=== PATIENT | female | born 1955 | race Caucasian/White ===

== ENCOUNTER 2021-01-07 08:06 | Outpatient (CLI) | payer MEDICARE, SELFPAY ==
--- NOTE | ~2021-01-07 | DEXA_ITS ---
Bone Density Report Name: Dale Blanc Age: 65 Sex: Female Ethnicity: White Date of : 1955 Indication: postmenopausal; height loss; Referring Provider: SAIRA CARRASQUILLO Study: Bone densitometry was performed. Exam Date: January 07, 2021 Accession number: [id number] Bone Density: Region BMD T-score Z-score Classification AP Spine (L1-L4) 0.581 -4.2 -2.3 Osteoporosis Femoral Neck (Left) 0.507 -3.1 -1.5 Osteoporosis Total Hip (Left) 0.718 -1.8 -0.5 Osteopenia Total Hip Bilateral Avg 0.702 -1.9 -0.7 Osteopenia Femoral Neck (Right) 0.556 -2.6 -1.0 Osteoporosis Total Hip (Right) 0.684 -2.1 -0.8 Osteopenia World Health Organization criteria for BMD impression classify patients as: Normal (T-score at or above -1.0), Osteopenia (T-score between -1.0 and -2.5), or Osteoporosis (T-score at or below -2.5). 10-year Fracture Risk: FRAX not reported because: Some T-score for Spine Total or Hip Total or Femoral Neck at or below -2.5 Clinical Information Provided by Patient: Has used the following medications: Vitamin D, Calcium Patient maximum height was 64.5 Menopause Age: 53 Onset of menses at age 12 Number of children 1 Impression: The patient has osteoporosis, based on the Total Spine T-score. Discussion: HIGH RISK OF FRACTURE. BONE DENSITY IS UNDESIRABLY LOW AT ONE OR MORE SKELETAL SITES, CONSISTENT WITH OSTEOPOROSIS. ALSO, BONE DENSITY IS LOWER THAN EXPECTED FOR AGE AND SEX AT ONE OR MORE SKELETAL SITES; RECOMMEND A DILIGENT SEARCH FOR SECONDARY CAUSES OF BONE LOSS. This patient's lowest T-score meets the World Health Organization's (WHO) criteria for osteoporosis at one or more sites (T-score -2.5 or below). In untreated patients, the risk of osteoporotic fracture increases approximately two-fold for each 1.0 SD decrease in T-score. Low bone density is not the only risk factor for fracture; also consider factors such as patient's age, frailty or poor health, risk of falling, risk of injury, previous osteoporotic fracture, family history of osteoporosis, cigarette smoking, low body weight, etc. Not everyone with low bone mineral density has osteoporosis; osteomalacia and other metabolic bone disorders should also be considered. Patients who have osteoporosis should be evaluated for specific diseases and conditions (secondary causes) that may cause or contribute to bone loss. The [place] Association of Clinical Endocrinologists (AACE) and National Osteoporosis Foundation (NOF) recommend pharmacologic intervention for all postmenopausal women whose T-score is in this range. Also, this patient's bone mineral density is below the range considered normal for healthy age-, sex-, and race-matched controls at least one site (Z-score -2.0 or below). This warrants careful evaluation for diseases and conditions that may
--- NOTE | ~2021-01-07 | MM_ITS ---
EXAMINATION: MM screening carrie BI w saulo HISTORY: Screening mammogram TECHNIQUE: Craniocaudal and mediolateral oblique 3-D tomosynthesis images were obtained and synthetic 2-D images were generated. CAD analysis was submitted and interpreted. COMPARISON: No prior mammogram is available for comparison at this institution. BREAST PARENCHYMAL COMPOSITION: There are scattered areas of fibroglandular density. FINDINGS: RIGHT BREAST: There is focal asymmetry in the posterior third of the upper outer quadrant of the [address]. LEFT BREAST: There is no evidence of suspicious mass, calcification, or architectural distortion to s uggest malignancy. IMPRESSION: 1. Right breast focal asymmetry. 2. Additional mammographic views and possible breast ultrasound are recommended. BI-RADS Category 0: Incomplete: Needs additional imaging evaluation. Reviewed, dictated and finalized at location A. IMPRESSION: 1. Right breast focal asymmetry. 2. Additional mammographic views and possible breast ultrasound are recommended . BI-RADS Category 0: Incomplete: Needs additional imaging evaluation.
== END 2021-01-07 08:07 | disposition home or self-care (01) ==
PROVIDERS: PCP Family Medicine; Visit Provider Family Medicine
DX: Z12.31 Encounter for screening mammogram for malignant neoplasm of breast (principal); Z78.0 Asymptomatic menopausal state; M81.0 Age-related osteoporosis without current pathological fracture; M85.89 Other specified disorders of bone density and structure, multiple sites; R92.8 Other abnormal and inconclusive findings on diagnostic imaging of breast
CPT/HCPCS: 77063; 77067; 77080

== ENCOUNTER 2022-03-31 09:38 | Outpatient (CLI) | payer MEDICARE, SELFPAY ==
--- NOTE | ~2022-03-31 | MM_ITS ---
EXAMINATION: MM screening carrie BI w saulo HISTORY: Screening TECHNIQUE: Craniocaudal and mediolateral oblique 3-D tomosynthesis images were obtained and synthetic 2-D images were generated. CAD analysis was submitted and interpreted. COMPARISON: Comparison to multiple prior studies sequentially, with oldest reviewed study dated 02/17. BREAST PARENCHYMAL COMPOSITION: Breast composed of scattered areas of fibroglandular density FINDINGS: There is no evidence of suspicious mass, calcification, or architectural distortion to sugg est malignancy in either breast. There has been no suspicious interval change. IMPRESSION: 1. No mammographic evidence of malignancy. 2. Recommend routine screening mammography in one year. BI-RADS Category 1: Negative Reviewed, dictated and finalized at location B. T TOUR GUIDE
== END 2022-03-31 09:39 | disposition home or self-care (01) ==
PROVIDERS: PCP Family Medicine; Visit Provider Physician Assistant
DX: Z12.31 Encounter for screening mammogram for malignant neoplasm of breast (principal)
CPT/HCPCS: 77063; 77067

== ENCOUNTER 2023-06-15 13:18 | Outpatient (CLI) | payer MEDICARE, SELFPAY ==
--- NOTE | 2023-06-15 13:25 | ECHO_ITS ---
Patient Info Name: Dale Blanc Age: 68 years : 1955 Gender: Female Ht: 64 in Wt: 137 lbs BSA: 1.68 m2 HR: 77 bpm BP: 131 / 78 mmHg Heart Rhythm: Sinus Rhythm Technical Quality: Good Exam Date: 06/15/2023 1:46 PM Exam Location: Echo Lab Patient Status: Outpatient Admit Date: 06/15/2023 Staff Ordering Physician: Jessica Reynoso MD C Engineer: Kvng Jefferson RDCS Attending Provider: Jessica Reynoso MD Referring Physician: Edgardo FREITAS; Exam Type: CA echo doppler color flow Study Info Indications - murmur Complete two-dimensional, color flow and Doppler transthoracic echocardiogram is performed. Summary 1. Complete two-dimensional, color flow and Doppler transthoracic echocardiogram is performed. 2. Left ventricular chamber dimension is normal. 3. Left ventricular systolic function is hyperdynamic, estimated at >70%. 4. Ventricular septum is sigmoid shaped. No LVOT obstruction. 5. The left ventricular diastolic function is grade I diastolic dysfunction. 6. E/e' 17 is elevated. 7. Left atrial chamber dimension is mildly enlarged. 8. There is mild tricuspid valve regurgitation. 9. No pulmonary hypertension, estimated pulmonary arterial systolic pressure is 30 mmHg. Left Ventricle E/e' 17 is elevated. Ventricular septum is sigmoid shaped. No LVOT obstruction. Left ventricular chamber dimension is normal. Left ventricular systolic function is hyperdynamic, estimated at >70%. The left ventricular diastolic function is grade I diastolic dysfunction. Right Ventricle Right ventricular systolic function is normal and with normal TAPSE 2.7 cm. Right ventricular chamber dimension is normal. Left Atria Left atrial chamber dimension is mildly enlarged. Right Atria Right atrial chamber dimension is normal. Aortic Valve The aortic valve is trileaflet. There is no aortic valve stenosis. There is no aortic valve regurgitation. Pulmonic Valve There is no pulmonic regurgitation. Mitral Valve There is no mitral valve stenosis. There is no mitral valve regurgitation. Tricuspid Valve There is mild tricuspid valve regurgitation. No pulmonary hypertension, estimated pulmonary arterial systolic pressure is 30 mmHg. Pericardium/Pleural There is no pericardial effusion. Inferior Vena Cava Normal inferior vena cava with >50% collapse upon inspiration consistent with normal right atrial pressure, 5 mmHg. Aorta The aortic root size at the sinus of Valsalva is normal. Left Ventricular Outflow Tract Name Value Normal LVOT 2D LVOT Diameter 2.0 cm LVOT Doppler LVOT Peak Gradient 8 mmHg LVOT Mean Gradient 5 mmHg LVOT VTI 36 cm LVOT VTI/AV VTI Ratio 1.1 LVOT Stroke Volume 112 ml LVOT CO 6.9 l/min LVOT CI 4.1 l/min/m2 Pulmonic Valve Name Value Normal RVOT Doppler -------
== END 2023-06-15 13:19 | disposition home or self-care (01) ==
PROVIDERS: PCP Family Medicine; Visit Provider Family Medicine
DX: R93.1 Abnormal findings on diagnostic imaging of heart and coronary circulation (principal); R01.1 Cardiac murmur, unspecified; I07.1 Rheumatic tricuspid insufficiency; Z51.81 Encounter for therapeutic drug level monitoring
CPT/HCPCS: 93306

== ENCOUNTER 2024-06-02 09:30 | Outpatient (CLI) | payer MEDICARE, SELFPAY ==
--- NOTE | ~2024-06-02 | MM_ITS ---
EXAMINATION: MM screening carrie BI w saulo HISTORY: Screening TECHNIQUE: Craniocaudal and mediolateral oblique 3-D tomosynthesis images were obtained and synthetic 2-D images were generated. CAD analysis was submitted and interpreted. COMPARISON: Comparison to multiple prior studies sequentially, with oldest reviewed study dated 02/17. BREAST PARENCHYMAL COMPOSITION: Not dense: There are scattered areas of fibroglandular density. FINDINGS: There is no evidence of suspicious mass, calcification, or architectural distortion to sugg est malignancy in either breast. There has been no suspicious interval change. IMPRESSION: 1. No mammographic evidence of malignancy. 2. Recommend routine screening mammography in one year. BI-RADS Category 1: Negative Reviewed, dictated and finalized at location B. ECT PRODUCTION ENGINEER
--- OUTSIDE RECORDS SUMMARY | 2024-06-02 09:36 | XMS_ITS | Encounter Summary ---
Author Organization [facility] Address 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
--- OUTSIDE RECORDS SUMMARY | 2024-06-02 09:36 | XMS_ITS | Encounter Summary ---
Author Organization [employer] [facility] Address 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
--- OUTSIDE RECORDS SUMMARY | 2024-06-02 09:36 | XMS_ITS | Clinical Summary ---
Author Organization [facility] Address [address] [place] [address] Care Team Providers Care Press Catcher Name Role Phone Unavailable Primary Care Provider Unavailabl e Source Comments [facility] [employer],non-owned Affiliates and Associated Physician Practices is amultiple site organization consisting of ambulatory clinics and hospital sitesin [place], [place], [place] and [place]. This disclosure is being madepursuant to the Care Everywhere program and may not contain all information available regarding this patient. Last updated 18.[facility] Allergies No known active allergies Immunizations Name Administration Dates Next Due INFLUENZA VACCINE, HIGH-DOSE , QUADR. (FLUZONE HIGH-DOSE QUADRIVALENT; 65Y+), 0.7 ML (HD-IIV4) 01/02/2020 INFLUENZA VACCINE, QUADR. (F LUZONE; FLULAVAL; FLUARIX; AFLURIA QUADRIVALENT; 6MO+), 0.5 ML (IIV4) 01/17/2019 TD (ADULT), 5 LF TETANUS TOXOID, ADSORBED, PF Social History Tobacco Use Types Packs/Day Years Used Date Smoking Tobacco: Never Assessed Sex and Gender Information Value Date Recorded Sex Assigned at Not on file Gender Identity Not on file Sexual Orientation Not on file Plan of Treatment Health Maintenance Due Date Last Done Comments BONE DENSITY TESTING 1955 COLOGUARD (AGES 45-75) - COLON CA SCREENING 1955 COLON MONITORING 1955 COLONOSCOPY - COLON CA SCREENING 1955 CT COLONOGRAPHY - COLON CA SCREENING 1955 Colorectal Cancer Screening 1955 FIT - COLON CA SCREENING 1955 FLEX SIG - COLON CA SCREENING 1955 LIPID TESTING 1955 MAMMOGRAM 1955 HEPATITIS C SCREENING 01/24/1972 PNEUMOCOCCAL VACCINE 50+ (1 of 1 - PCV) 01/29/2004 ZOSTER VACCINE (1 of 2) 01/29/2004 COVID-19 VACCINE (3 - season) 2023 06/07/2020, 05/15/2020 INFLUENZA VACCINE (#1) 2023 0, 01/17/2019, 01/13/2018, Additional history exists DEPRESSION SCREENING 04/19/2024 MEDICARE AWV CALENDAR YEAR 2024 DTAP/TDAP/TD VACCINES (2 - Td or Tdap) 01/17/2029 01/17/2019 Respiratory Syncytial Virus (RSV) Vaccine Pt: or over 60 yrs (1 - 1-dose 75+ series) 2029 HEPATITIS B VACCINE Aged Out No longe r eligible based on patient's age to complete this topic HIB VACCINE Aged Out No longer eligi ble based on patient's age to complete this topic HPV VACCINE Aged Out No longer eligi ble based on patient's age to complete this topic MENINGOCOCCAL (Group B) VACCINE Aged Out No longer eligible based on patient's age to complete this topic MENINGOCOCCAL VACCINE Aged Out No galileo sneha eligible based on patient's age to complete this topic
--- OUTSIDE RECORDS SUMMARY | 2024-06-02 09:36 | XMS_ITS | Encounter Summary ---
Author Organization [facility] Address [address] [place] [address] Care Team Providers Care Cider Press Operator Name Role Phone Shi Ansari MD Primary Care Provider + Encounter Details Date Type Department Care Team (Latest Contact Info) Description 09/19/2003 Inpatient Historical HIS [facility] Karan López MD [address] [place] [address] [address] [place] [phone] DIFFUS CYSTIC MASTOPATHY (Primary Dx) Social History Tobacco Use Types Packs/Day Years Used Date Smoking Tobacco: Never Assessed Comments Unknown Sex and Gender Information Value Date Recorded Sex Assigned at Not on file 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
--- OUTSIDE RECORDS SUMMARY | 2024-06-02 09:36 | XMS_ITS | Encounter Summary ---
Author Organization [facility] Address [address] [place] [address] Care Team Providers Care Buggy Operator Name Role Phone Shi Ansari MD Primary Care Provider + Encounter Details Date Type Department Care Team (Latest Contact Info) Description 12/07/2001 Outpatient Historical HIS [facility] Karan López MD [address] [place] [address] [address] [place] [phone] MAMMOGRAPHIC MICROCALCIFICATION (Primary Dx) Social History Tobacco Use Types Packs/Day Years Used Date Smoking Tobacco: Never Assessed Comments Unknown Sex and Gender Information Value Date Recorded Sex Assigned at Not on file Legal Sex Female 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
--- OUTSIDE RECORDS SUMMARY | 2024-06-02 09:36 | XMS_ITS | Patient Health Summary ---
Author Organization [facility] Address [address] [place] [place] [address] Care Team Providers Care Financial Services Sales Representative Name Role Phone Unavailable Primary Care Provider Unavailabl e Note from [facility],non-owned Affiliates and Associated Physician Practices is amultiple site organization consisting of ambulatory clinics and hospital sitesin [place], [place], [place] and [place]. This disclosure is being madepursuant to the Care Everywhere program and may not contain all information available regarding this patient. Last updated 18.[facility] Allergies No known active allergies Immunizations * INFLUENZA VACCINE, HIGH-DOSE, QUADR. (FLUZONE HIGH-DOSE QUADRIVALENT; 65Y+), 0.7 ML (HD-IIV4)(Given 01/02/2020) * INFLUENZA VACCINE, QUADR. (FLUZONE; FLULAVAL; FLUARIX; AFLURIA QUADRIVALENT; 6MO+), 0.5 ML (IIV4)(Given 01/17/2019) * TD (ADULT), 5 LF TETANUS TOXOID, ADSORBED, PF(Given 01/17/2019) Social History Tobacco Use Types Packs/Day Years Used Date Smoking Tobacco: Never Assessed Sex and Gender Information Value Date Recorded Sex Assigned at Not on file Gender Identity Not on file Sexual Orientation Not on file
--- OUTSIDE RECORDS SUMMARY | 2024-06-02 09:36 | XMS_ITS | Encounter Summary ---
Author Organization [employer] [facility] Address 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
--- OUTSIDE RECORDS SUMMARY | 2024-06-02 09:36 | XMS_ITS | Encounter Summary ---
Author Organization [facility] Address 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
--- OUTSIDE RECORDS SUMMARY | 2024-06-02 09:36 | XMS_ITS | Clinical Summary ---
Author Organization [facility] Address [address] [place] [address] Phone Care Team Providers Care Rotary Kiln Operator Name Role Phone Shi Ansari MD Primary Care Provider + Social History Tobacco Use Types Packs/Day Years Used Date Smoking Tobacco: Never Assessed Comments Unknown Sex and Gender Information Value Date Recorded Sex Assigned at Not on file Legal Sex Female 4:28 AM ORDER PACKER OR PACKAGER Gender Identity Not on file Sexual Orientation Not on file Plan of Treatment Health Maintenance Due Date Last Done Comments DTAP/TDAP/TD VACCINES (1 - Tdap) 1973 COLORECTAL SCREENING 1999 Colorectal Cancer Screening 1999 FIT-DNA Q 3 years 1999 FIT/FOBT Q 1 year 1999 Flex Sig/CT Colonography Q 5 years 1999 PNEUMOCOCCAL VACCINE 65+ YEA RS (1 of 1 - PCV) 01/29/2004 ZOSTER VACCINE (1 of 2) 01/29/2004 BREAST CANCER SCREENING 03/05/2016 03/05/2015, 02/21 OSTEOPOROSIS SCREENING 2019 INFLUENZA VACCINE (#1) 2023 RSV VACCINE (60+ or ) (1 - 1-dose 75+ series) 2029 Procedures Procedure Name Priority Date/Time Associated Diagnosis Comments MAMMO SCREEN BILAT W OR WO CAD Routine 03/05/2015 4:44 PM ORDER PACKER OR PACKAGER Visit for screening mammogram from Last 3 Months or Most Recently Relevant to Health Maintenance Results * MAMMO DIGITAL SCREEN BILAT (03/05/2015 4:44 PM ORDER PACKER OR PACKAGER) Anatomical Region Laterality Modality Breast Bilateral Mammography Narrative 03/06/2015 7:36 AM ORDER PACKER OR PACKAGER Bilateral digital screening mammogram with computer assisted diagnosis History: Annual screening exam. Findings: A bilateral screening mammogram was performed. Comparison is made to : 02/21/2010 There are scattered fibroglandular densities. No new masses, suspicious calcifications, or areas of asymmetry or distortion are identified. CAD was utilized. Impression: Negative screening mammogram. Recommendation: Routine annual follow-up Overall Assessment: Birads Category 1: Negative us Deonna Mix MD MAMMO ORDERABLES Final Resul t from Last 3 Months or Most Recently Relevant to Health Maintenance Care Teams Rotary Kiln Operator Relationship Specialty Start Date End Date Shi Ansari MD [address] [address] [place] [phone] PCP - General Family Practice 03/05/15
--- OUTSIDE RECORDS SUMMARY | 2024-06-02 09:36 | XMS_ITS | Encounter Summary ---
Author Organization [facility] Address 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
--- OUTSIDE RECORDS SUMMARY | 2024-06-02 09:36 | XMS_ITS | Referral Summary ---
Author Organization [facility] Address [address] [place] [address] Care Team Providers Care Soaker Helper Name Role Phone Unavailable Primary Care Provider Unavailabl e Source Comments [facility] [employer],non-owned Affiliates and Associated Physician Practices is amultiple site organization consisting of ambulatory clinics and hospital sitesin [place], [place], [place] and [place]. This disclosure is being madepursuant to the Care Everywhere program and may not contain all information available regarding this patient. Last updated 18.[facility] [employer] Allergies No known active allergies Immunizations Name [...] Orientation Not on file Plan of Treatment Not on file
== END 2024-06-02 09:31 | disposition home or self-care (01) ==
LOC: ANHIMG 09:33
PROVIDERS: PCP Family Medicine; Visit Provider Family Medicine
DX: Z12.31 Encounter for screening mammogram for malignant neoplasm of breast (principal)
CPT/HCPCS: 77063; 77067

== ENCOUNTER 2024-08-22 07:52 | Outpatient (CLI) | payer MEDICARE, SELFPAY ==
--- NOTE | ~2024-08-22 | DEXA_ITS ---
Bone Density Report Name: JAIRO MOHR Age: 69 Sex: Female Ethnicity: White Date of : 1955 Indication: postmenopausal osteoporosis; height loss; Referring Provider: PRABHAKAR YEUNG Study: Bone densitometry was performed. Exam Date: August 22, 2024 Accession number: [id number] Bone Density: Region BMD T-score Z-score Classification AP Spine(L1, L2, L3) 0.553 -4.2 -2.1 Osteoporosis Femoral Neck (Left) 0.556 -2.6 -0.8 Osteoporosis Total Hip (Left) 0.679 -2.2 -0.6 Osteopenia Femoral Neck (Right) 0.562 -2.6 -0.8 Osteoporosis Total Hip (Right) 0.707 -1.9 -0.4 Osteopenia Total Hip Mean 0.693 -2.1 -0.5 Osteopenia World Health Organization criteria for BMD impression classify patients as: Normal (T-score at or above -1.0), Osteopenia (T-score between -1.0 and -2.5), or Osteoporosis (T-score at or below -2.5). 10-year Fracture Risk: FRAX not reported because: Some T-score for Spine Total or Hip Total or Femoral Neck at or below -2.5 Previous Exams: Region Exam Age BMD T-score BMD Change BMD Change Date g/cm2 vs Baseline vs Previous AP Spine (L1-L3) 08/22/2024 69 0.553 -4.2 0.001 (0.2%) 0.001 (0.2%) 01/07/2021 65 0.552 -4.2 Total Hip(Left) 08/22/2024 69 0.679 -2.2 -0.038 (-5.3%) -0.038 (-5.3%) 01/07/2021 65 0.718 -1.8 Total Hip(Right) 08/22/2024 69 0.707 -1.9 0.023 (3.4%) 0.023 (3.4%) 01/07/2021 65 0.684 -2.1 *Denotes significance at 95% confidence level, LSC for AP Spine = 0.022 g/cm2, LSC for Total Hip = 0.027 g/cm2 Clinical Information Provided by Patient: Has used the following medications: Vitamin D, Calcium Patient maximum height was 64 Menopause Age: 53 No regular weight bearing exercise Drinks caffeinated beverages Onset of menses at age 11 Number of children 1 Impression: The patient has osteoporosis, based on the Total Spine T-score. The BMD for the Total Hip(Left) decreased, changing by -5.3% since the last DXA exam. Discussion: HIGH RISK OF FRACTURE. BONE DENSITY IS UNDESIRABLY LOW AT ONE OR MORE SKELETAL SITES, CONSISTENT WITH OSTEOPOROSIS. ALSO, BONE DENSITY IS LOWER THAN EXPECTED FOR AGE AND SEX AT ONE OR MORE SKELETAL SITES; RECOMMEND A DILIGENT SEARCH FOR SECONDARY CAUSES OF BONE LOSS. This patient's lowest T-score meets the World Health Organization's (WHO) criteria for osteoporosis at one or more sites (T-score -2.5 or below). In untreated patients, the risk of osteoporotic fracture increases approximately two-fold for each 1.0 SD decrease in T-score. Low bone density is not the only risk factor for fracture; also consider factors such as patient's age, frailty or poor health, risk of falling, risk of injury, previous osteoporotic fracture, family history of osteoporosis, cigarette smoking, low body weight, etc. Not everyone with low bone mineral density has osteoporosis; osteomalacia and other metabolic bone disorders should also be considered. Patients who have osteoporosis should be evaluated for specific diseases and conditions (secondary causes) that may cause or contribute to bone loss. The [place] Association of Clinical Endocrinologists (AACE) and National Osteoporosis Foundation (NOF) recommend pharmacologic intervention for all postmenopausal women whose T-score is in this range. Also, this patient's bone mineral density is below the range considered normal for healthy age-, sex-, and race-matched controls at least one site (Z-score -2.0 or below). This warrants careful evaluation for diseases and conditions that may contribute to accelerated bone loss. The patient should follow a healthful lifestyle (good nutrition with adequate calcium and vitamin D, and appropriate weight-bearing exercise). Follow-Up: Consider a repeat BMD and Vertebral Fracture Assessment (VFA) exam in 2 years or sooner if medically necessary, to reassess this patient's status. Reported by: LUIS on 08/22/2024 8:41:00 AM. Reviewed, dictated and finalized at location AMary DE PAZ
--- OUTSIDE RECORDS SUMMARY | 2024-08-22 07:55 | XMS_ITS | Encounter Summary ---
Author Organization [facility] Address 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
--- OUTSIDE RECORDS SUMMARY | 2024-08-22 07:55 | XMS_ITS | Encounter Summary ---
Author Organization [facility] Address [address] [place] [address] Care Team Providers Care Felt Pad Cutter Name Role Phone Shi Ansari MD Primary Care Provider + Encounter Details Date Type Department Care Team (Latest Contact Info) Description 12/07/2001 Outpatient Historical HIS [facility] Karan López MD [address] [place] [address] [address] [place] [phone] MAMMOGRAPHIC MICROCALCIFICATION (Primary Dx) Social History Tobacco Use Types Packs/Day Years Used Date Smoking Tobacco: Never Assessed Comments Unknown Sex and Gender Information Value Date Recorded Sex Assigned at Not on file Legal Sex Female 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
--- OUTSIDE RECORDS SUMMARY | 2024-08-22 07:55 | XMS_ITS | Clinical Summary ---
Author Organization [facility] Address [address] [place] [address] Phone Care Team Providers Care Boiler Out Name Role Phone Shi Ansari MD Primary Care Provider + Social History Tobacco Use Types Packs/Day Years Used Date Smoking Tobacco: Never Assessed Comments Unknown Sex and Gender Information Value Date Recorded Sex Assigned at Not on file Legal Sex Female 4:28 AM HOME THERAPY CLINICIAN Gender Identity Not on file Sexual Orientation Not on file Plan of Treatment Health Maintenance Due Date Last Done Comments DTAP/TDAP/TD VACCINES (1 - Tdap) 1973 COLORECTAL SCREENING 1999 Colorectal Cancer Screening 1999 FIT-DNA Q 3 years 1999 FIT/FOBT Q 1 year 1999 Flex Sig/CT Colonography Q 5 years 1999 PNEUMOCOCCAL VACCINE 50+ YEA RS (1 of 1 - PCV) 01/29/2004 ZOSTER VACCINE (1 of 2) 01/29/2004 BREAST CANCER SCREENING 03/05/2016 03/05/2015, 02/21 OSTEOPOROSIS SCREENING 2019 INFLUENZA VACCINE (#1) 2023 RSV VACCINE (60+ or ) (1 - 1-dose 75+ series) 2029 Procedures Procedure Name Priority Date/Time Associated Diagnosis Comments MAMMO SCREEN BILAT W OR WO CAD Routine 03/05/2015 4:44 PM HOME THERAPY CLINICIAN Visit for screening mammogram from Last 3 Months or Most Recently Relevant to Health Maintenance Results * MAMMO DIGITAL SCREEN BILAT (03/05/2015 4:44 PM HOME THERAPY CLINICIAN) Anatomical Region Laterality Modality Breast Bilateral Mammography Narrative 03/06/2015 7:36 AM HOME THERAPY CLINICIAN Bilateral digital screening mammogram with computer assisted [...] Recently Relevant to Health Maintenance Care Teams Boiler Out Relationship Specialty Start Date End Date Shi Ansari MD [address] [place] [address] [place] [address] PCP - General Family Practice 03/05/15
--- OUTSIDE RECORDS SUMMARY | 2024-08-22 07:55 | XMS_ITS | Encounter Summary ---
Author Organization [facility] Address 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
--- OUTSIDE RECORDS SUMMARY | 2024-08-22 07:55 | XMS_ITS | Encounter Summary ---
Author Organization [facility] Address [address] [place] [address] Care Team Providers Care Receivables Specialist Name Role Phone Shi Ansari MD Primary Care Provider + Encounter Details Date Type Department Care Team (Latest Contact Info) Description 09/19/2003 Inpatient Historical HIS [facility] Karan López MD [address] [place] [address] [address] [place] [phone] DIFFUS CYSTIC MASTOPATHY (Primary Dx) Social History Tobacco Use Types Packs/Day Years Used Date Smoking Tobacco: Never Assessed Comments Unknown Sex and Gender Information Value Date Recorded Sex Assigned at Not on file Legal Sex Female 4:28 AM CONSERVATOR ARTIFACTS Gender Identity Not on file Sexual Orientation Not on file documented as of this encounter Plan of Treatment Not on file documented as of this encounter Visit Diagnoses Diagnosis Diffuse cystic mastopathy- Primary documented in this encounter Care Teams Receivables Specialist Relationship Specialty Start Date End Date Shi Ansari MD [address] [place] [phone] PCP - General Family Practice 03/05/15 documented as of this encounter
--- OUTSIDE RECORDS SUMMARY | 2024-08-22 07:55 | XMS_ITS | Encounter Summary ---
Author Organization [facility] Address 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
--- OUTSIDE RECORDS SUMMARY | 2024-08-22 07:55 | XMS_ITS | Encounter Summary ---
Author Organization [facility] Address [address] [place] [address] Care Team Providers Care Spa Consultant Name Role Phone Shi Ansari MD Primary Care Provider + Encounter Details Date Type Department Care Team (Latest Contact Info) Description 08/28/2003 Outpatient Historical HIS [facility] Deonna Donaldson MD [address] [facility] [address] [place] [address] MAMMOGRAPHIC MICROCALCIFICATION (Primary Dx) Social History Tobacco Use Types Packs/Day Years Used Date Smoking Tobacco: Never Assessed Comments Unknown Sex and Gender Information Value Date Recorded Sex Assigned at Not on file Legal Sex Female 4: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
--- OUTSIDE RECORDS SUMMARY | 2024-08-22 07:55 | XMS_ITS | Clinical Summary ---
Author Organization [facility] Address [address] [place] [address] Care Team Providers Care Card Tape Converter Operator Name Role Phone Unavailable Primary Care Provider Unavailabl e Source Comments [facility],non-owned Affiliates and Associated Physician Practices is amultiple site organization consisting of ambulatory clinics and hospital sitesin [place], [place], [place] and [place]. This disclosure is being madepursuant to the Care Everywhere program and may not contain all information available regarding this patient. Last updated 18.[facility] Allergies No known active allergies Immunizations Immunization Administration Dates Next Due INFLUENZA VACCINE, HIGH-DOSE [...] at Not on file Legal Sex Female 9:51 AM CDT Gender Identity Not on file Sexual Orientation [...] VACCINE (3 - season) 2023 06/07/2020, 05/15/2020 DEPRESSION SCREENING 04/19/2024 INFLUENZA VACCINE (Season Ended) 2024 01/02/2020, 01/17/2019, 01/13/2018, Additional history exists DTAP/TDAP/TD VACCINES (2 - Td or Tdap) [...] complete this topic MENINGOCOCCAL (Group B) VACCINE SHARED DECISION-MAKING Aged Out No longer eligible based on patient's age to complete this topic MENINGOCOCCAL GROUPS A/C/Y/W VACCINE Aged Out No longer eligible based on patient's age to complete this topic Insurance MEDICARE [employer] MANAGED MEDICARE ADV
--- OUTSIDE RECORDS SUMMARY | 2024-08-22 07:55 | XMS_ITS | Encounter Summary ---
Author Organization [facility] Address 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
== END 2024-08-22 07:53 | disposition home or self-care (01) ==
PROVIDERS: PCP Family Medicine; Visit Provider Physician Assistant
DX: M81.0 Age-related osteoporosis without current pathological fracture (principal); M85.852 Other specified disorders of bone density and structure, left thigh; M85.851 Other specified disorders of bone density and structure, right thigh; Z78.0 Asymptomatic menopausal state
CPT/HCPCS: 77080